=== PATIENT | female | born 1965 | race Caucasian/White ===

== ENCOUNTER 2018-02-05 10:39 | Emergency (ER) | payer MEDICARE ==
[2018-02-05] MEDS ORDERED: 0.9 % SODIUM CHLORIDE 1,000 ML BAG IV ONE (11:24)
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
[2018-02-05 11:35] LABS: BASO % 0.4 % (0-6); EOS % 1.3 % (0-6); GRAN % 48.7 % (47-80); HEMATOCRIT 43.7 % (35.0-47.0); HEMOGLOBIN 14.1 gm/dl (11.6-16.0); MEAN CELL VOLUME 95.2 fl (81-97); MEAN CORPUSCULAR HEMOGLOBIN 30.7 pg (27-33); MEAN CORPUSCULAR HGB CONC 32.3 g/dl (32-36); MEAN PLATELET VOLUME 10.1 fl (7.4-10.4); MONO % 10.6 % (0-9); PLATELET COUNT 423 K/uL (130-400); RED BLOOD COUNT 4.59 M/uL (3.80-5.40); RED CELL DISTRIBUTION WIDTH 14.3 % (11.5-14.5); WHITE BLOOD COUNT W/O DIFF 9.2 K/uL (4.2-12.2)
[2018-02-05] MEDS ORDERED: PROMETHAZINE HCL 25 MG in 0.9 % SODIUM CHLORIDE 100ML 100 ML IVPB ONE (11:42)
[2018-02-05] MEDS ORDERED: HYDROMORPHONE HCL 2 MG/ML VIAL IVP ONE (11:42)
[2018-02-05 12:03] LABS: BLOOD UREA NITROGEN 13 mg/dL (6-20); CREATININE 1.1 mg/dL (0.5-0.9); EST GLOMERULAR FILTRATION RATE 55 mL/min; TOTAL PROTEIN 7.1 g/dL (6.6-8.7)
[2018-02-05 12:05] LABS: GLUCOSE,RANDOM 118 mg/dL (74-109)
[2018-02-05 12:08] LABS: ALBUMIN 4.3 g/dL (4.0-5.0); ALKALINE PHOSPHATASE 81 U/L (35-104); ALT/SGPT 23 U/L (<33); AST/SGOT 22 U/L (10.0-35.0); LIPASE 23 U/L (13-60)
[2018-02-05 12:10] LABS: BILIRUBIN,DIRECT < 0.2 mg/dL (0-0.3)
[2018-02-05] MEDS ORDERED: METHYLPREDNISOLONE PF 125MG/VIAL IVP ONE (13:17)
[2018-02-05 14:52] LABS: URINE APPEARANCE CLEAR; URINE BILIRUBIN NEGATIVE (NEGATIVE); URINE BLOOD NEGATIVE (NEGATIVE); URINE COLOR YELLOW; URINE GLUCOSE (UA) NEGATIVE (NEGATIVE); URINE KETONE NEGATIVE (NEGATIVE); URINE LEUKOCYTE ESTERASE NEGATIVE (NEGATIVE); URINE NITRITE NEGATIVE (NEGATIVE); URINE PROTEIN NEGATIVE (NEGATIVE); URINE UROBILINOGEN 0.2 E.U./dL (0.20 - 1.00)
== END 2018-02-05 15:09 | disposition home or self-care (01) ==
LOC: ER 10:39
DX: K52.9 Noninfective gastroenteritis and colitis, unspecified (principal); R10.32 Left lower quadrant pain; R11.2 Nausea with vomiting, unspecified; F17.210 Nicotine dependence, cigarettes, uncomplicated
CPT/HCPCS: 99284 ×2; 96365; 96375; 83690; 85025; 80076; 80048; 81003; 74176; J1170; J2550; J2930; J7030

== ENCOUNTER 2018-02-24 09:38 | Day surgery (SDC) | payer MEDICARE ==
[2018-02-24] MEDS ORDERED: PROPOFOL 10 MG/ML VIAL IV ONE (09:39)
[2018-02-24] MEDS ORDERED: MIDAZOLAM HCL 2MG/2ML VIAL IV ONE (09:39)
[2018-02-24] MEDS ORDERED: LIDOCAINE 2% MDV (20MG/ML) 20ML VIAL IV ONE (09:39)
--- NOTE | 2018-03-16 16:20 | Operative Note ---
DATE OF SERVICE: 02/24/2018. DATE OF SURGERY: 02/24/2018. REQUESTING PROVIDER: Lissy Carl NP. Surgeon: Sandy Esparza MD. POSTOPERATIVE DIAGNOSES: 1. Normal colon with no endoscopic evidence of colitis, a normal terminal ileum. 2. Suboptimal bowel preparation. OPERATION: COLONOSCOPY. Indication for Procedure: This is a 52-year-old female with history of abnormal CT scan with questionable colitis, who presented for colonoscopy. SEDATION: Sedation is per Anesthesia. Pulse oximetry was monitored throughout the duration of the procedure to maintain O2 saturation of 90% or greater. Supplemental oxygen was administered via nasal cannula . Cardiac and vital signs were monitored throughout the duration of the procedure and they were stable. PROCEDURE: The procedure of colonoscopy, risks and alternatives to the procedure, including the risks of bleeding and perforation among others, were explained to the patient. She voiced understanding and agrees to have the procedure done. Physical examination was performed and the patient was found stable for sedation. The patient was then placed in the left lateral position and sedation was initiated. Digital rectal exam was performed and showed small external hemorrhoids with no palpable rectal masses. A lubricated Olympus [id number] colonoscope was then inserted into the rectum and under direct visualization was advanced to the cecum without difficulty. The ileocecal valve and appendiceal orifice were identified and photographed. The colonic mucosa was carefully examined upon introduction of the colonoscope. There were no lesions noted. The ileocecal valve was intubated and the terminal ileal mucosa was inspected for about 10 cm and appeared normal. The colonoscope was then withdrawn very carefully, re-examining the colonic mucosal surfaces. No lesions were noted. Multiple biopsies were obtained from the left colon. There were no other lesions noted. In the rectum, retroflexion maneuver was performed and Grade 1 internal hemorrhoids were noted. The colonoscope was then withdrawn and the procedure was terminated. The patient tolerated the procedure well, without immediate complications. She remained in stable vital signs and was transferred into the Recovery Room. PLAN AND RECOMMENDATIONS: 1. Patient is to be on a high-fiber diet. 2. She is to have repeat colonoscopy for screening in 10 years. Thank you for allowing me to participate in the care of your patient. CC: MD Lissy Lo NP [facility]
== END 2018-02-24 11:25 | disposition home or self-care (01) ==
LOC: HOP 09:38
PROVIDERS: ATTEND Internal Medicine Gastroenterology
DX: Z12.11 Encounter for screening for malignant neoplasm of colon (principal); R93.3 Abnormal findings on diagnostic imaging of other parts of digestive tract; E78.00 Pure hypercholesterolemia, unspecified; K21.9 Gastro-esophageal reflux disease without esophagitis; F32.9 Major depressive disorder, single episode, unspecified